=== PATIENT | male | born 1950 | race Two or more races ===

== ENCOUNTER 2025-08-27 06:09 | Inpatient (IN) | payer OTHER ==
[2025-08-27] VITALS (14 sets, daily range): BP systolic 116–145; BP diastolic 64–77; PULSE 66–84; RESP 10–14; TEMP 96.4–97.8; O2SAT 95–100
[~2025-08-27] VITALS: Ht 152.4 cm; Wt 65.7 kg
[~2025-08-27 06:09] MED LIST: ASPI81CH59 PO; ATE50T PO; ATEN-60 PO; ATOR20TA PO; CALC0.25 PO; CHLO25TA2 PO; CHOL1TAB28 PO; CLON0.1T PO; DAPA1TAB4 PO; DUTA0.5C11 PO; FERR1TAB31 PO; FURO20TA3 PO; INSLANTI SC; NIFE1TAB31 PO; TAMS0.4C39 PO; TELM80TA PO
[2025-08-27] MEDS ORDERED: GLYCOPYRROLATE 0.2 MG/ML 1ML VIAL ONE (06:50)
[2025-08-27] MEDS ORDERED: PROPOFOL 10 MG/ML 20 ML IV ONE ×2 (06:50→08:45)
[2025-08-27] MEDS ORDERED: ONDANSETRON HCL 4 MG/2 ML VIAL ONE (06:50)
[2025-08-27] MEDS ORDERED: LIDOCAINE 1% INJ PF 5ML AMP ONE (06:50)
[2025-08-27] MEDS ORDERED: PHENYLEPHRINE HCL 10 MG/ML VL ONE (06:52)
[2025-08-27] MEDS ORDERED: SODIUM CHLORIDE LOCK 10 ML ONE (06:52)
[2025-08-27] MEDS ORDERED: KETAMINE 50mg/ML 1ml syringe ONE (07:27)
[2025-08-27] MEDS: LIDOCAINE 1% HCL (LOCAL ANESTH.) INJ 20ML MDV ONE (09:45)
[2025-08-27] MEDS: BUPIVACAINE 0.25% INJ 50ML VIAL ONE (09:45)
[2025-08-27] MEDS ORDERED: NALOXONE HCL 0.4 MG/ML VIAL IV PRN (10:15)
[2025-08-27] MEDS ORDERED: ONDANSETRON HCL 4 MG/2 ML VIAL IV PRN (10:15)
[2025-08-27] MEDS ORDERED: fentaNYL CITRATE 100 MCG/2 ML VL IV PRN (10:15)
[2025-08-27] MEDS ORDERED: hydrALAZINE HCL 20 MG/ML VL IV PRN (10:15)
[2025-08-27] MEDS ORDERED: HYDROmorphone HCL 2 MG/ML VL/or syr IV PRN (10:15)
[2025-08-27] MEDS ORDERED: FLUMAZENIL 0.1 MG/ML INJ 10ML MDV IV PRN (10:15)
--- NOTE | 2025-08-27 10:21 | DVHOP2 ---
Operative Report - 2 Report Details Date: 08/27/25 Preop Diagnosis: Left internal carotid artery stenosis Postop Diagnosis: Same Surgeon: Kaz King MD Anesthesiologist: Regional block Anesthesia: Regional Drains: Flat RHONA Consent: The patient was informed of the risks and benefits of the procedure. These include but are not limited to complications of anesthesia, postoperative infection, incomplete relief of symptoms, recurrence of symptoms, damage to blood vessels, nerves and tendons, deep venous thrombosis, pulmonary embolism and possible need for repeat surgery in the future. Complications: None Estimated Blood Loss: 50 mL Findings: Critical left ICA stenosis Indications for Surgery: Left ICA stenosis Name of Procedure Performed Left carotid endarterectomy Procedure Details Procedure Details: Patient was identified in the preop hold area. He was consented in preop by myself. He was brought back to the operating room placed the operating table in supine position. After adequate induction of anesthesia antibiotics and time- out. The left neck was prepped and draped in normal surgical fashion. Standard left carotid endarterectomy incision was made Bovie cauterization was used to dissect down through the platysma down to the the sternocleido muscle which was retracted laterally this allowed us to gain access to the facial vein which was divided with 2-0 silk sutures followed by hemoclips. The artery was then encountered the common carotid artery was dissected proximally with a circumferentially controlled. The bifurcation was then injected with 1% lidocaine preservative-free. No hemodynamic changes were noted. The superior thyroid artery was circumferentially controlled with vessel loops. The external carotid artery and internal carotid arteries were both circumferentially contro lled with a vessel loops. 3000 units of heparin was given to the patient. After approximately 5 minutes all vessels involved were clamped. An arteriotomy was made in the left common carotid artery which was extended into the internal carotid artery through the critical high-grade stenosis plaque. The plaque was then removed. At this point in time a nine [place] shunt was then inserted without difficulty flow was restored to the internal carotid artery. At this point in time the lumen of the artery was then examined was cleaned out was flushed with heparinized saline. A bovine pericardial patch was then sewn to the carotid and internal carotid artery with a patch angioplasty technique with six 0 Prolene sutures at the completion of the anastomosis the shunt was removed. All vessels were back flushed prior to completion of the anastomosis. The vessels were then unclamped flow was restored. There was one area of suture line bleeding which was controlled with the interrupted six 0 Prolene suture. The wound was then irrigated out there was no further bleeding noted a flat RHONA drain was then inserted through a separate stab incision in the lateral neck. Drain was then secured in place with a 0 Prolene suture. The wound was then closed with deep layer was closed with carotid sheath being reapproximated with a 2-0 Vicryl sutures interruptedly followed by a dermal layer of 2-0 Vicryl sutures. Followed by 4-0 Monocryl subcuticular suture. Followed by Dermabond. At the end of the procedure the patient awoke without any difficulties neurologically intact. Sponge and needle counts were correct. Specimen: Left carotid artery plaque Condition Critical Disposition Still a Patient KAZ KING Jr., MD Aug 27, 2025 10:20
[2025-08-27] MEDS: ACETAMINOPHEN IV 1000 MG/100ML (10MG/ML) IV ONE (10:28)
[2025-08-27] MEDS: ceFAZolin 2 GM/D5W50ml 50 ML IV ONE (10:29)
[2025-08-27] MEDS: BUPIVACAINE HCL 50 ML ONE (10:29)
[2025-08-27] MEDS: GELATIN 1 SPONGE SIZE 100 TOP ONE (10:30)
[2025-08-27] MEDS: HEPARIN SODIUM (PORCINE) 5000 UNITS/ML 1ML VIAL ONE (10:30)
[2025-08-27] MEDS: LIDOCAINE 1% (LOCAL ANESTH.) PF 5ml SDV ONE (10:30)
[2025-08-27] MEDS: BUPIVACAINE HCL 0.25% P/F 10 ML VIAL ONE (10:30)
[2025-08-27] MEDS: THROMBIN (BOVINE) 5000 UNIT SOL VIAL ONE (10:31)
[2025-08-27] MEDS ORDERED: NITROGLYCERIN 0.4 MG SL TAB SL PRN (10:45)
[2025-08-27] MEDS ORDERED: MORPHINE SULFATE INJ 2 MG/ml SYRG IV PRN (10:45)
[2025-08-27] MEDS ORDERED: DEXTROSE (50%) 50ML SYRG IV PRN (18:45)
[2025-08-27] MEDS: SEVELAMER 800 MG TAB PO ONE (20:14)
[2025-08-27] MEDS: InsuLIN REG 1unit/0.01ml Soln (100units/ml) SC SCH (22:00)
[2025-08-27] MEDS: ACCU-CHEK COMFORT CURVE STRIP VI SCH (22:00)
[2025-08-28] VITALS (25 sets, daily range): BP systolic 134–156; BP diastolic 62–120; PULSE 58–82; RESP 9–19; TEMP 98.1–98.4; O2SAT 93–100
[2025-08-28 06:04] LABS: Hematocrit 27.2 % (41.0-53.0); Hemoglobin 9.5 g/dL (13.5-17.5); Mean Corpuscular Hemoglobin 29.3 pg (28.0-32.0); Mean Corpuscular Volume 83.7 fL (80.0-100.0); Nucleated Red Blood Cells % 0.1 %
[2025-08-28 06:39] LABS: Anion Gap 12 (5-15); Carbon Dioxide 24 mmol/L (20-31); Potassium 4.6 mmol/L (3.5-5.1)
[2025-08-28 06:45] LABS: BUN/Creatinine Ratio 18.5 (10.0-20.0)
[2025-08-28 06:49] LABS: Blood Urea Nitrogen 76 mg/dL (9-23); Calcium 8.6 mg/dL (8.7-10.4); Chloride 98 mmol/L (98-107); Glucose 109 mg/dL (74-106); Magnesium 3.3 mg/dL (1.6-2.6); Sodium 134 mmol/L (136-145)
--- NOTE | 2025-08-28 08:07 | DVHPN2 ---
Progress Note Date Seen: Aug 28, 2025 Has the PT tested + for MRSA If YES, has PT been informed?: No Medical Necessity Reason Pt with a Central, PICC or Fol: No Subjective Patient reports: No new complaints Changes from previous H/P or p: No Changes Review of Systems: HEENT:Normal, CVS:Normal, RESPIRATORY:Normal, GI:Normal, :Normal, MSK:Normal, NEURO:Normal Objective vital signs Vital Sign Date Time Temp Pulse Resp B/P (MAP) Pulse Ox O2 Delivery O2 Flow Rate FiO2 08/28/25 07:31 71 19 148/62 (90) 100 08/28/25 04:00 98.2 98.2 08/27/25 20:00 Nasal Cannula* 2 28 Total Intake and Output 08/27/25 08/27/25 08/28/25 15:00 23:00 07:00 Intake Total 480 ml Output Total 35 ml 50 ml 580 ml Balance -35 ml -50 ml -100 ml medications Current Medications Medications Dose Ordered Sig/Young Route Start Time Stop Time Status Last Admin Dose Admin Nitroglycerin 0.4 mg Q5MINP PRN SL 08/27/25 10:45 Morphine Sulfate 2 mg Q30M PRN IV 08/27/25 10:45 Sevelamer HCl 800 mg TIDWM PO 08/28/25 08:00 Atenolol 25 mg DAILY PO 08/28/25 10:00 Atorvastatin Calcium 20 mg DAILY PO 08/28/25 10:00 Furosemide 20 mg DAILY PO 08/28/25 10:00 Diagnostic Test (Pha) 1 strip ACHS 08/27/25 22:00 08/28/25 06:30 1 STRIP Insulin Human Regular ACHS SC 08/27/25 22:00 08/27/25 22:00 3 UNITS Dextrose 50 ml UD PRN IV 08/27/25 18:45 Nifedipine 30 mg BID PO 08/27/25 22:00 08/27/25 22:33 30 MG Tamsulosin HCl 0.4 mg QPM PO 08/28/25 18:00 Aspirin 81 mg DAILY PO 08/28/25 10:00 Examination: GENERAL:Normal, HEENT:Normal, NECK:Normal (incision clean dry. viki drain removed), LUNGS:Normal, CVS:Normal, ABDOMEN:Normal, MSK:Normal, SKIN:Normal, NEURO:Normal, :Normal laboratory and microbiology Laboratory Tests 08/28/25 05:45 Test 08/28/25 05:45 Range/Units Serum Glucose 109 H 74-106 mg/dL Problem List/Assessment/Plan Problem List/Assessment/Plan s/p left cea pod 1 resume home medications oob cardiac diet light activity d/c today follow-up 2 weeks Plan discussed with: Patient My Orders My Orders Orders - CANDIDO JOHNSON Jr., MD Procedure Category Date Status Time Admit ADMIT 08/27/25 Transmitted 10:34 Nitroglycerin [facility] 08/27/25 In Process Sublingual (Ntrostat 10:45 Morphine Sulfate PH[facility] 08/27/25 In Process Injection 10:45 Stat Ekg For Chest [facility] 08/27/25 In Process Pain 10:34 Notify Of Changes [facility] 08/27/25 In Process From Base 10:34 Food And Beverage Server For [facility] 08/27/25 In Process 24 Hours 10:34 Emergency Dysrhythmia [facility] 08/27/25 In Process Protocol 10:34 Rhythm Strips Once [facility] 08/27/25 In Process Every Shift 10:34 Oxygen By Nasal RT 08/27/25 Transmitted Cannula 10:34 * Hospitalist Consult CONS 08/27/25 Transmitted Communication Order ORDERS 08/27/25 Transmitted 12:07 Transfer Orders XFER 08/27/25 Transmitted 15:47 Mrsa Screen KP 08/27/25 In Process 17:29 Aspirin Enteric PHA 08/28/25 In Process Coated Tablet 10:00 Discharge DISCHARGE 08/28/25 Transmitted 07:59 CANDIDO JOHNSON Jr., MD Aug 28, 2025 08:07
[2025-08-28] MEDS: SEVELAMER 800 MG TAB PO SCH (09:23)
[2025-08-28] MEDS: FUROSEMIDE 20 MG TAB PO SCH (09:23)
[2025-08-28] MEDS: ATENOLOL 25 MG TAB PO SCH (09:24)
[2025-08-28] MEDS: ATORVASTATIN 20 MG TAB PO SCH (09:24)
[2025-08-28] MEDS: ASPirin-EC 81 mg tab PO SCH (09:24)
[2025-08-28] MEDS ORDERED: TAMSULOSIN HYDROCHLORIDE 0.4 MG CAP PO SCH (18:00)
== END 2025-08-28 12:01 | disposition home or self-care (01) | DRG 39 ==
LOC: SUR 06:09 → OVERFLOW 10:34 → DOU 17:20
PROVIDERS: ADMIT Surgery Vascular Surgery; ATTEND Surgery Vascular Surgery
PROC: 03UL0KZ Supplement Left Internal Carotid Artery with Nonautologous Tissue Substitute, Open Approach (ICD-10-PCS; 2025-08-27)
PROC: 03CL0ZZ Extirpation of Matter from Left Internal Carotid Artery, Open Approach (ICD-10-PCS; principal; 2025-08-27 07:35)
DX: I65.22 Occlusion and stenosis of left carotid artery (principal); Z79.899 Other long term (current) drug therapy
CPT/HCPCS: 36415; 80048; 82962; 83735; 85025; 86850; 86900; 86901; 87081; G0378; J0131; J1100; J1815; J2003; J2405; J2704; J3490